=== PATIENT | male | born 1995 | race Two or more races ===

== ENCOUNTER 2022-08-05 23:44 | Emergency (ER) | payer SELFPAY ==
[2022-08-06 00:15] LABS: BASOPHILS ABSOLUTE AUTO 0.03 K/mm3 (0.01-0.08); BASOPHILS PERCENT AUTO 0.4 % (0.1-1.2); EOSINOPHILS ABSOLUTE AUTO 0.18 K/mm3 (0.04-0.54); EOSINOPHILS PERCENT AUTO 2.6 (0.8-7.0); HEMATOCRIT 47.3 % (40.1-51.0); HEMOGLOBIN 15.4 gm/dl (13.7-17.5); IMMATURE GRAN ABSOLUTE AUTO 0.01 K/mm3 (0.00-0.10); IMMATURE GRAN PERCENT AUTO 0.1 % (<=1.0); LYMPHOCYTES ABSOLUTE AUTO 2.23 K/mm3 (1.32-3.57); LYMPHOCYTES PERCENT AUTO 31.7 % (21.8-53.1); MEAN CORPUSCULAR HEMOGLOBIN 28.1 pg (25.7-32.2); MEAN CORPUSCULAR HGB CONC 32.6 g/dl (32.2-35.5); MEAN CORPUSCULAR VOLUME 86.2 fl (79.0-92.2); MEAN PLATELET VOLUME 11.4 fl (9.4-12.3); MONOCYTES ABSOLUTE AUTO 0.43 K/mm3 (0.30-0.82); MONOCYTES PERCENT AUTO 6.1 % (5.3-12.2); NEUTROPHILS ABSOLUTE AUTO 4.16 K/mm3 (1.78-5.38); NEUTROPHILS PERCENT AUTO 59.1 % (34.0-67.9); PLATELET COUNT,PLT 193 K/mm3 (163-337); RED BLOOD CELL COUNT 5.49 M/mm3 (4.63-6.08); WHITE BLOOD CELL COUNT,WBC 7.04 K/mm3 (4.23-9.07)
[2022-08-06 00:39] LABS: A/G RATIO 1.2 (1-2); ALBUMIN 3.9 g/dl (3.4-5.0); ANION GAP 11.5 (5-15); BILIRUBIN TOTAL 0.6 mg/dL (0.2-1.0); BUN/CREATININE RATIO 12.7 (14-18); CALCIUM 8.9 mg/dL (8.5-10.1); CREATININE 1.1 mg/dL (0.7-1.3); EST CRCL DRUG DOSING (CG) 116.02 mL/min; POTASSIUM,K 3.5 mEq/L (3.5-5.1); PROTEIN TOTAL,TP 7.2 g/dl (6.4-8.2)
[2022-08-06 01:30] LABS: APPEARANCE,URINE CLEAR (Clear); BILIRUBIN,URINE NEGATIVE (Negative); COLOR,URINE YELLOW (Yellow); GLUCOSE,URINE NEGATIVE (Negative); KETONES,URINE TRACE (Negative); LEUKOCYTE ESTERASE,URINE NEGATIVE (Negative); NITRITE,URINE NEGATIVE (Negative); OCCULT BLOOD,URINE 1+ (Negative); PROTEIN,URINE NEGATIVE (Negative)
[2022-08-06 01:45] LABS: EPITHELIAL CELLS,URINE NOT SEEN /hpf (0-5); WBC,URINE 0-5 /hpf (0-5)
[2022-08-06 01:46] LABS: BACTERIA,URINE MODERATE /hpf (FEW); MUCUS,URINE RARE /hpf (FEW)
[2022-08-06 03:01] LABS: C. TRACHOMATIS BY PCR NOT DETECTED; N. GONORRHOEAE BY PCR NOT DETECTED
[2022-08-06 03:05] VITALS: BP 127/81; PULSE 74
== END 2022-08-06 02:54 | disposition home or self-care (01) ==
LOC: JD.ED 23:44
DX: N36.9 Urethral disorder, unspecified (principal); E66.9 Obesity, unspecified; F17.210 Nicotine dependence, cigarettes, uncomplicated; Z68.37 Body mass index [BMI] 37.0-37.9, adult
CPT/HCPCS: 36415; 74176; 74176-26; 80053; 81001; 85025; 87491; 87591; 99283; 99284